=== PATIENT | male | born 1965 | race Caucasian/White ===

== ENCOUNTER → 2020-01-06 | Outpatient (CLI) | payer OTHER ==
[~2020-01-06] MED LIST: IOHEXOL 240 MG/ML 50ML VIAL. PO ONE; IOHEXOL 300 MG/ML 100ML VIAL. IV ONE
--- NOTE | 2020-01-06 13:34 | RAD ---
EXAM: CT pelvis with contrast. HISTORY: Perineal mass. Prostate cancer status post radiotherapy. TECHNIQUE: CT of the pelvis was performed after the intravenous administration of 75 mL Omnipaque 300. One or more of the following individualized dose reduction techniques were utilized for this examination: 1. Automated exposure control. 2. Adjustment of the mA and/or kV according to patient size. 3. Use of iterative reconstruction technique. COMPARISON: None. FINDINGS: Bone windows reveal no suspicious lesions. There are small bone islands in the intertrochanteric femurs. A lucent focus in the right medial iliac bone is likely a lipoma or hemangioma. There is grade 1 anterolisthesis at L5-S1 from bilateral L5 pars interarticularis defects. An intramuscular lipoma between the oblique muscles laterally on the right measures 5.0 x 2.4 cm. A small umbilical hernia contains only fat. There is no small bowel obstruction. The appendix is not inflamed. There are no pathologically enlarged lymph nodes. There is ill-defined soft tissue mass within the peritoneal fat just anterolateral to the right leaf later musculature inferiorly. More superiorly, it is inseparable from the levator musculature and the posterior aspect of the right corpora cavernosa. It does not clearly originate from the prostate gland, but differentiation of planes is difficult where the levator abuts the right aspect of the prostate. The involved region spans approximately 2.7 x 2.6 cm transaxially and 2.3 cm craniocaudally. Brachytherapy seeds are noted within the prostate gland. No gross extraprostatic extension of a mass is identified. No definitive rectal mass is appreciable by this technique. IMPRESSION: 1. Approximately 2.7 cm soft tissue density mass within the fat anterolateral to the right levator musculature. This may represent postinflammatory change in the setting of a fistula, but neoplasm cannot be excluded. MRI of the pelvic floor/prostate/rectum with and without contrast could more precisely define anatomy and involvement. Electronically signed by: Jorge Cannon MD (01/06/2020 1:31 PM) [id number]
== END | disposition home or self-care (01) ==
LOC: CT 06:59
PROVIDERS: ATTEND Surgery
DX: C61 Malignant neoplasm of prostate (principal); K42.9 Umbilical hernia without obstruction or gangrene; D17.9 Benign lipomatous neoplasm, unspecified; M43.17 Spondylolisthesis, lumbosacral region
CPT/HCPCS: 72193; Q9966; Q9967